=== PATIENT | female | born 1970 ===

== ENCOUNTER 2018-05-01 16:36 | Emergency (ER) | payer OTHER ==
[2018-05-01 17:10] VITALS: BP 127/79; PULSE 80; RESP 16; TEMP 98.7; O2SAT 99
[2018-05-01] MEDS ORDERED: Tetanus/Diphtheria Toxoids 0.5 ml Syringe IM ONE (17:20)
[2018-05-01] MEDS ORDERED: Emtricitabine-Tenofovir 200 mg-300 mg Tab PO STA (17:22)
--- NOTE | 2018-05-01 17:36 | ED PDOC ---
Arrival/HPI - General Chief Complaint: Needle Stick Time Seen by Provider: 05/01/18 17:15 Historian: Patient - History of Present Illness Narrative History of Present Illness (Text): 47y/o female with hx of Diabetes presents to the ED after a needlestick to right 2nd digit, sustained at home while giving vitamin injection yesterday to a family member is known positive for HIV. Pt reports she squeezed blood out and ran digit under water. Pt denies pain to the digit at this time. Pt is requesting hiv testing as well as PEP. Time/Duration: Other (Yesterday) Symptom Onset: Sudden (needlestick) Severity Level: 1 Past Medical History - Travel History Have you recently traveled outside [place] w/in the past 3 mons?: No - Patient History Narrative Patient History: Diabetes Mellitus Type 2 - Infectious Disease Hx of Infectious Diseases: None - Tetanus Immunization Tetanus Immunization: >10 years Ago - Endocrine/Metabolic Hx Diabetes Mellitus Type 2: Yes Family/Social History Family/Social History: Unknown Family HX Hx Alcohol Use: No Hx Substance Use: No Hx Substance Use Treatment: No Allergies/Home Meds Allergies/Adverse Reactions: Allergies No Known Allergies Allergy (Verified 05/01/18 17:10) Review of Systems - Review of Systems Constitutional: Normal Eyes: Normal ENT: Normal Respiratory: Normal Cardiovascular: Normal Gastrointestinal: Normal Genitourinary Female: Normal Musculoskeletal: Normal Skin: Normal Neurological: Normal Endocrine: Normal Hemo/Lymphatic: Normal Psychiatric: Normal Physical Exam Vital Signs Temp Pulse Resp BP Pulse Ox 05/01/18 17:06 98.7 F 80 16 127/79 99 Blood Pressure: Normal Pulse: Regular Respiratory Rate: Normal Appearance: Positive for: Well-Appearing, Non-Toxic, Comfortable Pain Distress: None Mental Status: Positive for: Alert and Oriented X 3 - Systems Exam Head: Present: Normocephalic Conjunctiva: Present: Normal Ears: Present: Normal Mouth: Present: Moist Mucous Membranes Pharnyx: Present: Normal Nose (Internal): Present: Normal Inspection Neck: Present: Normal Range of Motion Respiratory/Chest: Present: Clear to Auscultation Cardiovascular: Present: Regular Rate and Rhythm Skin: Present: Warm, Normal Color (no puncture wound noted to right 2nd digit. ) Psychiatric: Present: Alert, Oriented x 3, Normal Insight, Normal Concentration Medical Decision Making ED Course and Treatment: -cbc -cmp- random glucose 309. treated with 4 units regular insulin. given rx with metformin 1000mg PO BID -UA -Hepatitis Panel - Rapid HIV -Amylase - HIV 1&2 Meds: Truvada Tetanus 05/01/18 17: [address] Boyd and Dr. Almodovar, to follow needlestick protocol. Pt will be started on Truvada first dose in ED, tetanus will be given in ED as wel. pt will be d/c on Trivicay to be started at home and continue on Truvada both for 28 days. Pt specifically educated and encouraged to be retested for HIV in 6 months to confirm status. Pt verbalizes understanding of such. 05/01/18 20:16 Repeat Accucheck 250. Pt given refill for metformin. Pt reports she has not taken DM regimen because she does not have medciation at home and has not taken meds for 2 months. Pt given follow-up to the clinic for further HIV testing and follow-up for results as well as management of diabetes. 20:24- Pt stable for d/c. no further eval needed in ed at this time. Pt given d/c instructions and precautions for ed return. Highly stressed follow-up at the clinic for diabetes management. Pt reports understanding. Re-evaluation Time: 20:16 - Lab Interpretations Interpretation: Abnormal lab values (accucheck 309. pt given insulin 4 units.) - Medication Orders Current Medication Orders: Dolutegravir Sodium (Tivicay) 50 mg PO STAT STA; Protocol Stop: 05/01/18 17:22 Emtricitabine/Tenofovir (Truvada 200 Mg-300 Mg) 1 tab PO STAT STA; Protocol Stop: 05/01/18 17:23 Tetanus/Diphtheria Toxoids Adsorbed (Tenivac 0.5 Ml) 0.5 ml IM .ONCE ONE Stop: 05/01/18 17:21 Disposition/Present on Arrival - Present on Arrival Any Indicators Present on Arrival: No History of DVT/PE: No - Disposition Have Diagnosis and Disposition been Completed?: Yes Diagnosis: Needlestick injury of finger, Needle stick injury, Uncontrolled diabetes mellit Disposition: HOME/ ROUTINE Disposition Time: 20:20 Patient Plan: Discharge Condition: GOOD Discharge Instructions (ExitCare): Type 2 Diabetes, Post-Exposure Prophylaxis Print Language: [place] IRISH Prescriptions: Dolutegravir Sodium [Tivicay] 50 mg PO DAILY #30 tab Emtricitabine/Tenofovir Diso [Truvada 200 MG-300 MG] 1 tab PO DAILY #30 tab MetFORMIN [glucoPHAGE] 1,000 mg PO BID #60 tab Referrals: [facility] [Outside]
[2018-05-01] MEDS ORDERED: Tdap Vaccine 0.5 ml Vial (10-64 yrs) IM ONE ×2 (17:46→18:10)
[2018-05-01 18:02] LABS: BASO % 0.7 % (0.0-2.0); EOS # 0.2 K/uL (0.0-0.7); EOS % 3.3 % (0.0-4.0); LYMPH # 2.2 K/uL (1.0-4.3); LYMPH % 35.6 % (20.0-40.0); MEAN CELL VOLUME 90.7 fl (81.0-99.0); MEAN CORPUSCULAR HEMOGLOBIN 30.7 pg (27.0-31.0); MEAN CORPUSCULAR HGB CONC 33.9 g/dL (33.0-37.0); MEAN PLATELET VOLUME 8.6 fl (7.2-11.7); MONO # 0.3 K/uL (0.0-0.8); MONO % 5.4 % (0.0-10.0); NEUT # 3.4 K/uL (1.8-7.0); RBC 4.54 Mil/uL (3.80-5.20); RED CELL DISTRIBUTION WIDTH 13.2 % (11.5-14.5); WHITE BLOOD COUNT 6.2 K/uL (4.8-10.8)
[2018-05-01 18:08] LABS: ALB/GLOB RATIO 1.2 (1.0-2.1); ALBUMIN 4.3 g/dL (3.5-5.0); ALT/SGPT 29 U/L (9-52); AMYLASE 62 U/L (30-110); AST/SGOT 25 U/L (14-36); BLOOD UREA NITROGEN 13 mg/dl (7-17); CALCIUM 9.3 mg/dL (8.4-10.2); GFR NON-AFRICAN AMERICAN > 60; SQUAMOUS EPITHIAL 3 /hpf (0-5); URINE BILIRUBIN NEGATIVE (NEGATIVE); URINE BLOOD NEGATIVE (NEGATIVE); URINE CLARITY SLIGHTY-CLOUDY (Clear); URINE COLOR YELLOW (YELLOW); URINE GLUCOSE (UA) >=500 mg/dL (NEGATIVE); URINE LEUKOCYTE ESTERASE NEG Leu/uL (Negative); URINE PROTEIN NEGATIVE (NEGATIVE); URINE UROBILINOGEN 0.2-1.0 mg/dL (0.2-1.0)
[2018-05-01] MEDS ORDERED: Insulin Regular 100 units/ml SC STA (18:59)
[2018-05-02 13:39] LABS: HEPATITIS B SURFACE AG Negative (NEGATIVE)
[2018-05-02 13:44] LABS: HEPATITIS A IGM NEGATIVE (NEGATIVE); HEPATITIS B CORE AB NEGATIVE (NEGATIVE)
[2018-05-02 13:56] LABS: HEPATITIS C ANTIBODY NEGATIVE (NEGATIVE)
== END 2018-05-01 20:39 | disposition home or self-care (01) ==
LOC: H.ER 16:36
DX: S61.431A Puncture wound without foreign body of right hand, initial encounter (principal); W46.0XXA Contact with hypodermic needle, initial encounter; Y92.89 Other specified places as the place of occurrence of the external cause; Z77.21 Contact with and (suspected) exposure to potentially hazardous body fluids; E11.65 Type 2 diabetes mellitus with hyperglycemia; Z79.4 Long term (current) use of insulin